=== PATIENT | female | born 1940 | race Caucasian/White ===

== ENCOUNTER 2020-09-03 13:36 | Outpatient (REF) | payer MEDICARE, SELFPAY ==
--- NOTE | 2020-09-03 15:02 | XR_ITS ---
EXAMINATION: XR CHEST CLINICAL INFORMATION: Asthma COMPARISON: None TECHNIQUE: 2 views of the chest were obtained. FINDINGS: The cardiac silhouette does not appear enlarged. Hilar and mediastinal contours are unremarkable. There is a left subclavian dual chamber pacemaker. There are mediastinal clips. The lungs are clear. There is no pleural effusion or pneumothorax. There are degenerative changes of the spine. There are median sternotomy wires. XR/XR chest 2V IMPRESSION: No evidence for acute disease in the chest. Postsurgical changes and left subclavian dual chamber pacemaker.
== END 2020-09-03 13:37 | disposition home or self-care (01) ==
LOC: HO.XRAY 13:36
PROVIDERS: PCP Internal Medicine; Visit Provider Internal Medicine
DX: J45.909 Unspecified asthma, uncomplicated (principal); R49.0 Dysphonia
CPT/HCPCS: 71046; 99202

== ENCOUNTER → 2020-10-01 13:43 | Outpatient (BNVA) | payer MEDICARE, SELFPAY | PROVIDERS: PCP Internal Medicine; Visit Provider Internal Medicine | DX: J30.9 Allergic rhinitis, unspecified (principal); J45.909 Unspecified asthma, uncomplicated | CPT/HCPCS: 99212 ==

== ENCOUNTER 2020-10-04 10:44 | Outpatient (REF) | payer MEDICARE, SELFPAY ==
--- NOTE | 2020-10-04 13:20 | PFT_ITS ---
Forced vital capacity and FEV1 are both slightly decreased. [id number] is also slightly decreased. MVV normal. Post bronchodilator therapy, there is no significant change. Total lung capacity and residual volume normal. Diffusion capacity normal. CONCLUSION: Very mild degree of restrictive pulmonary disorder. No significant obstructive airway disorder. Hannah Bhat MD MSB/MODL / [id number]
== END 2020-10-04 10:45 | disposition home or self-care (01) ==
LOC: HO.RESP 10:44
PROVIDERS: Visit Provider Internal Medicine
DX: J45.909 Unspecified asthma, uncomplicated (principal)
CPT/HCPCS: 94060; 94727; 94729